=== PATIENT | female | born 1955 | race African-American/Black ===

== ENCOUNTER → 2016-11-24 | Outpatient (CLI) | payer OTHER | LOC: COL.LAB 13:44 | DX: Z01.812 Encounter for preprocedural laboratory examination (principal); M16.12 Unilateral primary osteoarthritis, left hip ==

== ENCOUNTER 2017-10-10 10:12 | Day surgery (SDC) | payer MEDICARE ==
[~2017-10-10] VITALS: Ht 154.9 cm; Wt 89.9 kg
[2017-10-10 11:06] VITALS: BP 109/62; PULSE 73; TEMP 98.4
[2017-10-10] MEDS ORDERED: PRINIVIL40 MG PO (11:11)
[2017-10-10] MEDS ORDERED: ZANTAC 150MG T150 MG PO (11:12)
[2017-10-10] MEDS ORDERED: MYRBETR50MG PO (11:12)
[2017-10-10] MEDS ORDERED: HYGROTON 2525 MG/TAB PO (11:12)
[2017-10-10] MEDS ORDERED: VITAMIN B-1000 MCG/T PO (11:13)
[2017-10-10] MEDS ORDERED: NATURAL E400 IU PO (11:17)
[2017-10-10] MEDS ORDERED: VITAMIN C500 MG PO (11:17)
[2017-10-10] MEDS ORDERED: FOLIC ACID 40400 MCG PO (11:18)
[2017-10-10] MEDS ORDERED: VITAMIN D31000 I1 PO (11:18)
[2017-10-10] MEDS ORDERED: FERROUSGLUC256MG PO (11:19)
[2017-10-10] MEDS ORDERED: CALCIUM CARBON650 M2 PO (11:20)
[2017-10-10 15:45] VITALS: BP 149/57; PULSE 65; TEMP 97.5
[2017-10-10 16:00] VITALS: BP 147/61; PULSE 63
[2017-10-10] MEDS ORDERED: NORCO 325 MG-51 TAB PO (16:06)
[2017-10-10 16:15] VITALS: BP 144/63; PULSE 65
[2017-10-10 16:27] VITALS: TEMP 97.7
[2017-10-10 16:30] VITALS: BP 162/57; PULSE 67
== END 2017-10-10 18:17 | disposition home or self-care (01) ==
LOC: SDCO 10:12
DX: N62 Hypertrophy of breast (principal); I10 Essential (primary) hypertension; K21.9 Gastro-esophageal reflux disease without esophagitis; J45.909 Unspecified asthma, uncomplicated; M19.90 Unspecified osteoarthritis, unspecified site; Z90.710 Acquired absence of both cervix and uterus; Z88.0 Allergy status to penicillin; Z88.3 Allergy status to other anti-infective agents; Z88.2 Allergy status to sulfonamides; Z96.642 Presence of left artificial hip joint; Z87.891 Personal history of nicotine dependence; Z82.49 Family history of ischemic heart disease and other diseases of the circulatory system; Z82.3 Family history of stroke
CPT/HCPCS: J0171; J1100; J2405; J2704; J2710; J3010; J7120

== ENCOUNTER → 2020-01-05 | Outpatient (CLI) | payer MEDICARE ==
[~2020-01-05] MED LIST: CALCIUM CARBON650 M2 PO; FERROUSGLUC256MG PO; FOLIC ACID 40400 MCG PO; HYGROTON 2525 MG/TAB PO; MYRBETR50MG PO; NATURAL E400 IU PO; NORCO 325 MG-51 TAB PO; PRINIVIL40 MG PO; VITAMIN B-1000 MCG/T PO; VITAMIN C500 MG PO; VITAMIN D31000 I1 PO; ZANTAC 150MG T150 MG PO
== END ==
LOC: COL.RAD 13:56
DX: M75.112 Incomplete rotator cuff tear or rupture of left shoulder, not specified as traumatic (principal); S43.432A Superior glenoid labrum lesion of left shoulder, initial encounter; M19.012 Primary osteoarthritis, left shoulder; M19.011 Primary osteoarthritis, right shoulder
CPT/HCPCS: Q9967

== ENCOUNTER 2021-01-11 07:51 | Day surgery (SDC) | payer MEDICARE ==
[~2021-01-11] VITALS: Ht 154.9 cm; Wt 93.3 kg
[2021-01-11 08:43] VITALS: BP 151/78; PULSE 68; TEMP 98.2
[2021-01-11] MEDS ORDERED: TOVIAZ8 MG PO (08:58)
[2021-01-11] MEDS ORDERED: ONE-A-DAY ESSE1 EACH PO (08:58)
[2021-01-11] MEDS ORDERED: PRIL40 PO (09:00)
[2021-01-11 10:00] VITALS: BP 127/64; PULSE 75; TEMP 97.4
--- NOTE | 2021-01-11 10:00 | NUR ---
returned to [facility] from procedure, assisted off cart and ambulated into room and into recliner, alert and oriented but sleepy, requesting something to drink and water provided
[2021-01-11 10:15] VITALS: BP 112/74; PULSE 65
--- NOTE | 2021-01-11 10:20 | NUR ---
taking sips of water and tolerates well
[2021-01-11 10:30] VITALS: BP 156/74; PULSE 68
--- NOTE | 2021-01-11 10:30 | NUR ---
offered pujeannie or devika and declined, asking to have IV removed as it is sore, IV discontinued
--- NOTE | 2021-01-11 10:45 | NUR ---
preparing to give patient discharge instructions when she scooted to edge of chair with foot of chair still up, the end of chair went down and she sat down on the floor, no injury noted, was able to get herself up off floor and sat back in recliner
--- NOTE | 2021-01-11 10:45 | NUR ---
discharge instructions given to patient and assisted her with getting dressed
--- NOTE | 2021-01-11 10:59 | NUR ---
ambulated to bathroom independently
--- NOTE | 2021-01-11 11:10 | NUR ---
discharged per WC
== END 2021-01-11 11:10 | disposition home or self-care (01) ==
LOC: SDCO 07:51
DX: K21.9 Gastro-esophageal reflux disease without esophagitis (principal); I10 Essential (primary) hypertension; M19.90 Unspecified osteoarthritis, unspecified site; G47.33 Obstructive sleep apnea (adult) (pediatric); J45.909 Unspecified asthma, uncomplicated; E78.5 Hyperlipidemia, unspecified; Z96.642 Presence of left artificial hip joint; Z20.822 Contact with and (suspected) exposure to COVID-19; Z87.891 Personal history of nicotine dependence; Z98.84 Bariatric surgery status; Z79.899 Other long term (current) drug therapy; Z88.8 Allergy status to other drugs, medicaments and biological substances; Z88.5 Allergy status to narcotic agent; Z88.6 Allergy status to analgesic agent; Z88.1 Allergy status to other antibiotic agents; Z91.018 Allergy to other foods; Z91.013 Allergy to seafood
CPT/HCPCS: J2704; J7030

== ENCOUNTER 2022-02-03 08:03 | Day surgery (SDC) | payer MEDICARE ==
[~2022-02-03] VITALS: Ht 154.9 cm; Wt 90.6 kg
[~2022-02-03 08:03] MED LIST changes: +ONE-A-DAY ESSE1 EACH PO; +PRIL40 PO; +TOVIAZ8 MG PO
[2022-02-03 09:01] VITALS: BP 157/78; PULSE 65; TEMP 97.6
[2022-02-03 10:30] VITALS: BP 155/73; PULSE 73; TEMP 97.1
--- NOTE | 2022-02-03 10:30 | NUR ---
PATIENT ARRIVED TO ROOM VIA CART. PATIENT ASSISTED TO CHAIR X 2. PATIENT REQUESTS GRAPE JUICE.
[2022-02-03 10:45] VITALS: BP 170/79; PULSE 75
--- NOTE | 2022-02-03 10:45 | NUR ---
PATIENT ABLE TO TOLERATE GRAPE JUICE. SHE COMPLAINS OF SOME LLQ PAIN BUT BELIEVES IT IS GAS PAIN. SHE IS WAITING FOR THE DOCTOR TO COME VISIT WITH HER.
[2022-02-03 11:00] VITALS: BP 171/81; PULSE 73
--- NOTE | 2022-02-03 11:00 | NUR ---
REMOVED PATIENT'S IV AND SHE IS GETTING DRESSED.
== END 2022-02-03 11:15 | disposition home health service (06) ==
LOC: SDCO 08:03
DX: D12.3 Benign neoplasm of transverse colon (principal); K20.90 Esophagitis, unspecified without bleeding; K63.5 Polyp of colon; K92.1 Melena; K64.1 Second degree hemorrhoids; K59.00 Constipation, unspecified
CPT/HCPCS: J2704